=== PATIENT | male | born 1995 | race Caucasian/White ===

== ENCOUNTER 2018-03-23 20:43 | Emergency (ER) | payer OTHER ==
--- NOTE | 2018-03-23 21:03 | EDPHY ---
H & P Time Seen by Provider: 03/23/18 20:55 HPI/ROS: CHIEF COMPLAINT: Left shoulder pain HISTORY OF PRESENT ILLNESS: 22-year-old male via private vehicle complaining of acute left shoulder and clavicle pain after he collided with another individual playing softball this evening.. No dyspnea. Reproducible pain with range of motion. No head injury. No peripheral paresthesia PRIMARY CARE PROVIDER: REVIEW OF SYSTEMS: A ten point review of systems was performed and is negative with the exception of the items mentioned in the HPI PHYSICAL EXAM (Prior to examination, patient consented to physical exam, hands were washed and my usual and customary physical exam procedures followed) 1) GENERAL: Well-developed, well-nourished, alert and oriented. Appears to be in no acute distress. 2) HEAD: Normocephalic 3) HEENT: Pupils equal, round, reactive to light bilaterally. 4) LUNGS: Breathing comfortably. Equal breath sounds bilaterally. No crepitus. Ribs nontender including mid axillary region nontender. 5) MUSCULOSKELETAL: Tender to palpation mid to lateral clavicle. Reproducible pain to same location into the anterior aspect of shoulder with range of motion. Scapula nontender. No step-off. Soft compartments. Normal coloration. Soft compartments 6) SKIN: Intact. 7) VASCULAR: pulses and cap refill present are brisk 8) NEUROLOGIC: Radial, ulnar, median nerve function intact with no deficits appreciated on exam DIFFERENTIAL DIAGNOSIS: in no particular order including but not limited to fracture, sprain, compartment syndrome, dislocation Procedure: Splint Upper extremity sling was applied by ER chemical production technician. After application of the splint I returned and re-examined the patient. The splint was adequately immobilizing the joint and distal to the splint the patient's circulation and sensation were intact. Patient shows no signs of compartment syndrome. Was given orthopedic precautions. Smoking Status: Never smoked Constitutional: Initial Vital Signs Temperature (C) 36.8 C 03/23/18 20:46 Heart Rate 115 H 03/23/18 20:46 Respiratory Rate 18 03/23/18 20:46 Blood Pressure 146/82 H 03/23/18 20:46 O2 Sat (%) 97 03/23/18 20:46 O2 Delivery Mode Room Air Allergies/Adverse Reactions: No Known Allergies Allergy (Verified 03/23/18 20:48) Home Medications: Medication Instructions Recorded Miscellaneous Medical Supply [NO 1 ea MISC AD 01/09/12 HOME MEDS] MDM/Departure - MDM Imaging Results: Imaging Impressions Shoulder X-Ray 03/23/18 20:55 Impression: There is no acute osseous abnormality identified. Should there be progression of the patient's symptoms, MR imaging could be considered. Images reviewed myself Medications Given: Discontinued Medications Hydrocodone Bitart/Acetaminophen ([place] 5/325mg Prepack#6) 1 btl TAKEHOME EDNOW ONE Stop: 03/23/18 22:04 Last Admin: 03/23/18 22:13 Dose: 1 btl - Depart Disposition: Home, Routine, Self-Care Clinical Impression: Left shoulder pain Qualifiers: Chronicity: acute Qualified Code(s): M25.512 - Pain in left shoulder Condition: Good Instructions: Hydrocodone/Acetaminophen (By mouth), Shoulder Sprain (ED) Additional Instructions: Return to the ER immediately if you experience discoloration, have worsening pain, numbness, tingling, or any other symptoms that concern you. If you received x-rays in the emergency department today, be advised, that ligamentous , tendon, muscular, and other non-bony injury cannot be fully ruled out. Try to keep your affected extremity elevated above the level of your chest, and keep cold packs on the affected area, for the next 48 hours. Referrals: Mohini Roy MD [Medical Doctor] - 2-3 days, call for appt.
[2018-03-23] MEDS ORDERED: HYDROCOD/APAP 5/325 PREPACK#6 BTL TAKEHOME ONE (22:03)
[2018-03-23 22:19] VITALS: BP 100/60
== END 2018-03-23 22:16 | disposition home or self-care (01) ==
DX: M25.512 Pain in left shoulder (principal); Y93.64 Activity, baseball; W50.0XXA Accidental hit or strike by another person, initial encounter